=== PATIENT | female | born 1960 | race Two or more races ===

== ENCOUNTER 2021-09-30 11:04 | Emergency (ER) | payer OTHER ==
[~2021-09-30] VITALS: Ht 157.5 cm; Wt 64.4 kg
[2021-09-30 12:45] VITALS: BP 140/93
[2021-09-30] MEDS ORDERED: ACETAMINOPHEN 325 MG TAB PO ONE (12:45)
[2021-09-30] MEDS ORDERED: ACET-1158 PO (12:48)
[2021-09-30] MEDS ORDERED: CYCL-837 PO (12:48)
== END 2021-09-30 13:15 | disposition home or self-care (01) ==
LOC: EDBD 11:04 → ER 11:04
DX: S20.219A Contusion of unspecified front wall of thorax, initial encounter (principal); E11.9 Type 2 diabetes mellitus without complications; I10 Essential (primary) hypertension; V43.62XA Car passenger injured in collision with other type car in traffic accident, initial encounter; Y93.89 Activity, other specified; Y92.89 Other specified places as the place of occurrence of the external cause; Y99.8 Other external cause status
CPT/HCPCS: 71046; 93005